=== PATIENT | female | born 1990 | race Caucasian/White ===

== ENCOUNTER 2018-09-23 11:52 | Emergency (ER) | payer OTHER ==
[~2018-09-23] VITALS: Wt 87.5 kg
--- NOTE | ~2018-09-23 | EKG ---
[place], [place] ELECTROCARDIOGRAM REPORT NAME: FELIPE MENA UNIT #: [id number] ROOM: DOCTOR: EPIPHANY DRAFT REPORT BIRTHDATE: [birth year] [facility] Test Date: 2018-09-23 Test Time: 11:56:22 Pat Name: FELIPE MENA Department: ER Room: 4 Gender: [employer] Program Director: Julien Stoner : 1990 Requested By: JOSEE CASTREJON Order Number: [id number] Reading MD: Chloe Dumont MD Measurements Intervals Goodman Rate: 67 P: 56 VA: 126 QRS: 46 QRSD: 94 T: 18 QT: 373 QTc: 394 Interpretive Statements Sinus rhythm Normal ECG Electronically Signed On 09-23-2018 13:59:23 PDT by Chloe Dumont MD CM:EKGRPT:ELECTROCARDIOGRAM REPORT [id number] JOSEE SANCHEZ DRAFT REPORT JOSEE CASTREJON MD
[2018-09-23 11:53] VITALS: BP 123/72
[2018-09-23 12:10] LABS: BASO % 1.1 % (0.0-1.0); EOS # 0.2 10*3/uL (0.0-0.4); EOS % 4.2 % (1.0-4.0); HEMATOCRIT 40.4 % (37.0-47.0); HEMOGLOBIN 13.2 g/dl (12.0-16.0); LYMPH # 1.9 10*3/uL (1.3-4.4); LYMPH % 52.2 % (27.0-41.0); MEAN CELL VOLUME 92.4 fl (81.0-99.0); MEAN CORPUSCULAR HGB 30.2 pg (27.0-31.0); MEAN CORPUSCULAR HGB CONC 32.7 g/dl (33.0-37.0); MEAN PLATELET VOLUME 11.2 fl (9.6-12.3); MONO # 0.4 10*3/uL (0.1-1.0); MONO % 10.4 % (3.0-9.0); NEUT # 1.1 10*3/uL (2.3-7.9); NEUT % 32.1 % (47.0-73.0); PLATELET COUNT AUTOMATED 158 10*3/uL (130-400); RED BLOOD COUNT 4.37 10*6/uL (4.10-5.10); RED CELL DISTRI WIDTH 12.9 % (0-14.5); WHITE BLOOD COUNT 3.6 10*3/uL (4.8-10.8)
[2018-09-23 12:35] LABS: ALBUMIN 3.8 gm/dl (3.1-4.5); ALKALINE PHOSPHATASE 43 U/L (45-117); BUN 10 mg/dl (7-24); CHLORIDE 108 mmol/L (98-107); CREATININE 0.75 mg/dL (0.55-1.02); POTASSIUM 3.7 mmol/L (3.5-5.1); SGOT/AST 13 IU/L (3-35); SGPT/ALT 17 U/L (12-78); SODIUM 140 mmol/L (136-145); TOTAL PROTEIN 7.3 gm/dL (6.4-8.2)
[2018-09-23 12:38] LABS: TROPONIN I < 0.015 ng/ml (<0.045)
== END 2018-09-23 15:20 | disposition home or self-care (01) ==
LOC: ED 11:52
PROVIDERS: Emergency Medicine
DX: R07.89 Other chest pain (principal)

== ENCOUNTER → 2021-04-16 | Outpatient (CLI) | payer OTHER | END | disposition home or self-care (01) | LOC: COVID19 15:55 | PROVIDERS: ATTEND Internal Medicine | DX: Z11.52 Encounter for screening for COVID-19 (principal) ==

== ENCOUNTER 2022-01-12 11:19 | Emergency (ER) | payer OTHER ==
[~2022-01-12] VITALS: Ht 157.4 cm; Wt 80.7 kg
[2022-01-12 11:27] VITALS: BP 130/78
[2022-01-12 11:56] LABS: BASO # 0.1 10*3/uL (0.0-0.1); BASO % 1.4 % (0.0-1.0); EOS # 0.1 10*3/uL (0.0-0.4); HEMATOCRIT 35.9 % (37.0-47.0); LYMPH # 1.4 10*3/uL (1.3-4.4); LYMPH % 39.1 % (27.0-41.0); MEAN CELL VOLUME 89.5 fl (81.0-99.0); MEAN CORPUSCULAR HGB 29.4 pg (27.0-31.0); MEAN CORPUSCULAR HGB CONC 32.9 g/dl (33.0-37.0); MEAN PLATELET VOLUME 11.5 fl (9.6-12.3); MONO # 0.3 10*3/uL (0.1-1.0); MONO % 8.5 % (3.0-9.0); NEUT # 1.7 10*3/uL (2.3-7.9); PLATELET COUNT AUTOMATED 153 10*3/uL (130-400); RED BLOOD COUNT 4.01 10*6/uL (4.10-5.10); RED CELL DISTRI WIDTH 13.4 % (0-14.5); WHITE BLOOD COUNT 3.6 10*3/uL (4.8-10.8)
[2022-01-12 12:12] LABS: ALKALINE PHOSPHATASE 40 U/L (45-117); BUN 8 mg/dl (7-24); CHLORIDE 112 mmol/L (98-107); CREATININE 0.84 mg/dL (0.55-1.02); POTASSIUM 3.6 mmol/L (3.5-5.1); SGOT/AST 15 IU/L (3-35); SGPT/ALT 11 U/L (12-78); SODIUM 145 mmol/L (136-145); TOTAL PROTEIN 6.7 gm/dL (6.4-8.2)
[2022-01-12] MEDS ORDERED: KENALOG 0.025%15 GM T (14:04)
== END 2022-01-12 14:14 | disposition home or self-care (01) ==
LOC: ED 11:19
PROVIDERS: Physician Assistant
DX: R07.89 Other chest pain (principal); Z98.890 Other specified postprocedural states

== ENCOUNTER 2022-08-05 20:00 | Emergency (ER) | payer OTHER ==
[~2022-08-05] VITALS: Ht 157.4 cm; Wt 83.0 kg
[~2022-08-05 20:00] MED LIST: KENALOG 0.025%15 GM T
[2022-08-05 20:14] VITALS: BP 121/74
== END 2022-08-05 22:17 | disposition home or self-care (01) ==
LOC: ED 20:00
DX: S61.217A Laceration without foreign body of left little finger without damage to nail, initial encounter (principal); Z98.890 Other specified postprocedural states; W26.0XXA Contact with knife, initial encounter; Y93.89 Activity, other specified; Y92.89 Other specified places as the place of occurrence of the external cause; Y99.8 Other external cause status

== ENCOUNTER 2022-08-15 10:21 | Emergency (ER) | payer OTHER ==
[~2022-08-15] VITALS: Ht 157.4 cm; Wt 81.6 kg
[2022-08-15 10:35] VITALS: BP 134/64
== END 2022-08-15 11:13 | disposition home or self-care (01) ==
LOC: ED 10:21
DX: S61.217D Laceration without foreign body of left little finger without damage to nail, subsequent encounter (principal); Z87.891 Personal history of nicotine dependence; X58.XXXD Exposure to other specified factors, subsequent encounter